=== PATIENT | male | born 1980 | race Caucasian/White ===

== ENCOUNTER 2024-06-03 10:57 | Emergency (ER) | payer BC ==
[2024-06-03 11:08] VITALS: RESP 18; TEMP 97.8; O2SAT 100
--- NOTE | 2024-06-03 11:23 | ERPHSYRPT ---
- History of Present Illness Time Seen by Provider: 06/03/24 11:02 Source: patient Exam Limitations: no limitations Patient Subjective Stated Complaint: Pt states "I cut my arm with a razor blade on accident." Triage Nursing Assessment: PT presented alert and oriented X 3, skin wpd. Pt has an apparoc 2 cm x 1 cm lacertaion noted to left forarm Physician History: Left arm laceration. 2 cm. Occurred just prior to arrival. Not up-to-date on tetanus shot. 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 Bleeding well-controlled. No falls or other trauma. Allergies/Adverse Reactions: No Known Drug Allergies Allergy (Verified 06/03/24 11:08) Home Medications: No Reportable Medications [No Reported Medications] 06/03/24 [History] Hx Tetanus, Diphtheria Vaccination/Date Given: No Hx Influenza Vaccination/Date Given: No Hx Pneumococcal Vaccination/Date Given: No Immunizations Up to Date: No Travel Risk - International Travel Have you traveled outside of the country in past 3 weeks: No - Emerging Infectious Disease Are you exhibiting symptoms associated with any current EIDs: No - Past Medical History Pertinent Past Medical History: No - Past Surgical History Past Surgical History: No - Social History Smoking Status: Never smoker Exposure to second hand smoke: Yes Drug Use: none - Social Determinants of Health Will the patient participate in the screening: Declined to provide - Nursing Vital Signs Nursing Vital Signs: Initial Vital Signs Temperature 97.8 F 06/03/24 11:05 Pulse Rate 75 06/03/24 11:05 Respiratory Rate 18 06/03/24 11:05 Blood Pressure 119/80 06/03/24 11:05 O2 Sat by Pulse Oximetry 100 06/03/24 11:05 Pain Scale Pain Intensity 4 - Physical Exam SpO2 Interpretation: normal SpO2: 100 Comments: 06/03/24 11:19 Review of Systems Constitutional: Negative for fever. HENT: Negative for congestion. Respiratory: Negative for shortness of breath. Cardiovascular: Negative for chest pain. Gastrointestinal: Negative for abdominal pain. Genitourinary: Negative for dysuria. Musculoskeletal: Negative for back pain. Skin: Negative for rash. Neurological: Negative for headaches. Psychiatric/Behavioral: Negative for behavioral problems. All other systems reviewed and are negative. Physical Exam Vitals signs and nursing note reviewed. Constitutional: Appearance: Patient is well-developed. HENT: Head: Normocephalic and atraumatic. Eyes: Conjunctiva/sclera: Conjunctivae normal. Neck: Musculoskeletal: Normal range of motion. Trachea: No tracheal deviation. Cardiovascular: Rate and Rhythm: Normal rate. Pulmonary: Effort: Pulmonary effort is normal. No respiratory distress. Abdominal: Palpations: Abdomen is soft. Musculoskeletal: General: 2 cm left forearm laceration. Bleeding well-controlled no signs of tendon injury. No obvious deformity, sensation intact, 2+ capillary refill, 2 p oint tactile discrimination intact. 5 out of 5 strength. Full range of motion without pain. Compartments are soft, nontender. Overlying skin shows no tenting, bruising, ecchymosis. Skin: General: Skin is warm and dry. Neurological/ Psychiatric: Mental Status: Mental status, behavior, interaction with environment is appropriate for patient's age and condition Procedures - Laceration/Wound Repair Arm Time of Procedure: 11:22 Wound Location: Left Wound Length (cm): 2 Wound's Depth, Shape: linear Wound Explored: clean Irrigated: Yes Hibiclens Prep: Yes Anesthesia: 1% Lidocaine Volume Anesthetic (ccs): 5 Wound Repaired With: sutures Suture Size/Type: 3-0, prolene Number of Sutures: 3 Layer Closure?: No Sterile Dressing Applied?: Yes Splint Applied?: Yes Sling Applied?: No - Course Nursing assessment & vital signs reviewed: Yes Ordered Tests: Medication Summary Discontinued Medications Generic Name Dose Route Start Last Admin Trade Name Freq PRN Reason Stop Dose Admin Diphtheria/Tetanus/Acell Pertussis 0.5 ml 06/03/24 11:18 06/03/24 11:28 Tdap --Diph,Pertuss(Acell),Tet Vac/Pf 0.5 Ml Vial IM 06/03/24 11:19 0.5 ml .ONCE ONE Administration Diphtheria/Tetanus/Acell Pertussis Confirm 06/03/24 11:26 Tdap --Diph,Pertuss(Acell),Tet Vac/Pf 0.5 Ml Vial Administered 06/03/24 11:27 Dose 0.5 ml IM .STK-MED ONE - Progress Progress: improved Progress Note: 06/03/24 11:23 Laceration repaired as above. Suture removal in 7 to 10 days. No antibiotics at this point in time. Patient's tetanus shot was updated. Will return here sooner for new or changing symptoms, other signs of infection. Counseled pt/family regarding: diagnosis, need for follow-up - Departure Departure Disposition: Home Clinical Impression: Laceration of left upper arm Condition: Stable Critical Care Time: No Referrals: QUINTON VITALE [Primary Care Provider] - Follow up/PCP as directed Instructions: Laceration Repair With Stitches (DC) Additional Instructions: Suture removal in 7 to 10 days, return here, quick care or PCP. Return here sooner for any redness, drainage, signs of infection.
[2024-06-03] MEDS ORDERED: Adacel Vial IM ONE (11:26)
[2024-06-03] MEDS: Adacel Vial IM ONE (11:28)
[2024-06-03 11:48] VITALS: BP 115/78; PULSE 70
== END 2024-06-03 11:50 | disposition home or self-care (01) ==
LOC: ED 10:57
DX: S51.812A Laceration without foreign body of left forearm, initial encounter (principal); W26.0XXA Contact with knife, initial encounter; Z23 Encounter for immunization
CPT/HCPCS: 12001; 90471; 90715; 99282